=== PATIENT | female | born 1980 | race Caucasian/White ===

== ENCOUNTER 2017-02-12 07:30 | Inpatient (IN) | payer OTHER ==
[2017-02-12] MEDS ORDERED: IBUPROFEN 600 MG TAB PO PRN (11:48)
[2017-02-12] MEDS ORDERED: LR 1,000 ML IV PRN (11:48)
[2017-02-12] MEDS ORDERED: OLIVE OIL 118 ML BTL MISC PRN (11:48)
[2017-02-12] MEDS ORDERED: EPSOM SALT 454 GM TP PRN (11:48)
[2017-02-12] MEDS ORDERED: OXYTOCIN/RINGERS LACTATE 1,000 ML IV PRN (11:48)
[2017-02-12] MEDS ORDERED: TERBUTALINE SULFATE 1 MG/ML VIAL IV PRN (11:48)
[2017-02-12] MEDS ORDERED: OXYTOCIN/LR *STANDARD DOSE PROTOCOL IV SCH (13:00)
[2017-02-12 13:16] LABS: ABSOLUTE IMMATURE GRANULOCYTES 0.12 10^3/uL (0.00-0.10); ADD DIFF? NO; ADD MORPH? NO; ADD SCAN? NO; ATYPICAL LYMPHOCYTE FLAG 0 (0-99); FRAGMENT RBC FLAG 0 (0-99); HEMATOCRIT 33.6 % (38.0-47.0); HEMOGLOBIN 11.7 g/dL (12.6-16.3); LEFT SHIFT FLG 10 (0-99); LIPEMIA HEMOLYSIS FLAG 90 (0-99); MEAN CELL HEMOGLOBIN 31.5 pg (27.9-34.1); MEAN CELL HEMOGLOBIN CONCENTR. 34.8 g/dL (32.4-36.7); MEAN CELL VOLUME 90.6 fL (81.5-99.8); PLATELET CLUMPS FLAG 0 (0-99); PLATELET COUNT 141 10^3/uL (150-400); RED BLOOD CELL COUNT 3.71 10^6/uL (4.18-5.33); RED CELL DISTRIBUTION WIDTH 14.2 % (11.5-15.2)
[2017-02-12] MEDS ORDERED: LIDOCAINE 1% 300 MG/30 ML SDV ONE (15:01)
[2017-02-12] MEDS ORDERED: AMMONIA AROMATIC 1 EACH AMP IH ONE (15:01)
[2017-02-12] MEDS ORDERED: OLIVE OIL 118 ML BTL ONE (15:01)
[2017-02-12] MEDS ORDERED: MISOPROSTOL 200 MCG TAB ONE (15:02)
--- NOTE | 2017-02-12 17:13 | GHP ---
[f rep st] HISTORY AND PHYSICAL DATE OF ADMISSION: 02/12/2017 ADMITTING DIAGNOSES: 1. Intrauterine at 39-6/7 weeks. 2. Elective induction. HISTORY OF PRESENT ILLNESS: Patient is a 36-year-old, 3, para 1-0-1-1 at 39-6/7 weeks, with estimated due date 02/13/2017 by last menstrual period , and confirmed by first-trimester ultrasound at 8 weeks. The patient presents to labor and delivery for an elective induction of labor. She denies any leakage of fluid, vaginal bleeding. Good movement noted. She is having occasional contractions. She was examined about a week ago and noted to be 2 cm dilated, 75%, -2 station. She had her membranes swept and presents to labor and delivery today for an elective induction. The patient does have good care at [facility], and presented in her first trimester at 8 weeks. The is complicated by advanced maternal age. The patient did have genetic testing and all the testing was negative. The patient has a history of severe preeclampsia with G1, as well as retained placenta requiring D &C. Blood pressures in this have been stable. Anatomy scan at 20 weeks was normal but EFW was at 90%ile and upper normal dilated brain ventricles. These were followed with serial ultrasounds and normal. The patient did develop anemia of and is tolerating iron. She had multiple growth ultrasounds, each showing estimated weight at 98th percentile, but most recent at 37 weeks with an estimated weight 4753 g. Patient was offered a , declines at this time and wants to proceed with a vaginal delivery. Patient did receive both flu vaccine and Tdap. GBS culture is negative. PAST OBSTETRIC HISTORY: November 2013 she delivered a viable female at 40 weeks weighing 3262 g, vaginal delivery complicated by severe preeclampsia and complicated by manual extraction of placenta. In January 2016, she had a chemical and did not need a D and C, she was under 5 weeks. PAST GYNECOLOGIC HISTORY: Age of menarche 14 years. Cycles are every 28 days x3 to 4 days. Last menstrual period 05/08/2016. The patient denies a history of abnormal Pap smears or any exposure to sexually transmitted diseases. PAST MEDICAL HISTORY: Peptic ulcer diagnosed in 2016. PAST SURGICAL HISTORY: D and C. MEDICATIONS: vitamins, DHA, vitamin D. ALLERGIES: No known drug allergies. SOCIAL HISTORY: She is . She lives with her and their daughter. She is a teacher. Denies any alcohol or illicit drug use. She is a former smoker, but that was greater than 10 years ago FAMILY HISTORY: Father with coronary artery disease, duodenal cancer. Her sister has gallstones. Paternal grandmother lung cancer. Paternal aunt breast cancer. A history of depression in several family members. REVIEW OF SYSTEMS: Ten point review of systems is negative. Pertinent positives noted in HPI. LABORATORIES: The patient is A positive, antibody negative. RPR nonreactive. Rubella immune. Hepatitis B surface antigen negative. HIV negative. Trio screen was negative in 2013. All genetic testing negative. H and H 10.8 and 31.7. One-hour Glucola 73. Urine culture negative. GBS is negative. PHYSICAL EXAMINATION: VITAL SIGNS: On admission, vital signs are stable. Patient is afebrile. GENERAL: Well-nourished, well-developed female, alert and oriented x3. No apparent distress. CARDIOVASCULAR: Regular rate and rhythm. LUNGS: Clear to auscultation bilaterally. ABDOMEN: Gravid, soft, nontender, nondistended. PELVIC: On exam ,she is 2 cm dilated, 75% effaced, - 2 station. Soft. EXTREMITIES: Normal to inspection without calf tenderness or edema. heart tones: Category 1 tracing. Baseline of 140 beats per minute. Positive accelerations. No decelerations. Moderate variability. On toco, she is mark irregularly. ASSESSMENT: The patient is a 36-year-old, 3, para 1-0-1-1, at 39-6/7 weeks, who presents for an elective induction. PLAN: 1. Admit to labor and delivery. 2. Start Pitocin per protocol. 3. GBS is negative. No antibiotics needed. 4. Patient desires a natural delivery. /[id number]/MODL MTDD
--- NOTE | 2017-02-12 18:31 | OBPROG ---
OBG Labor Progress Note Assessment/Plan: Assessment: 36 y/o @ 38 6/7 wks for elective IOL Plan: Continue expectant management AROM-clear, moderate amt fluid FHTs - Cat I tracing Anticipate 02/12/17 18:28 Subjective: Pt is in chair, ctx's are getting more painful. Objective: 02/12/17 12:50 Patient ABO/Rh A POSITIVE 02/12/17 12:50 Lombardi Current Contraction Pattern: Regular FHR (bpm): 140 FHR Pattern Variability: Moderate FHR Category: 1 Membranes: AROM Amniotic Fluid Color: Clear - Procedures Non-surgical Procedures: Amniotomy Oxytocin Orders Assessment - Pre-Induction/Augmentation Assessment Gestational Age: 39 week(s) and 6 day(s) ICD10 Worksheet Patient Problems: Problems Problem Status Onset Endometritis Acute Preeclampsia Acute
--- NOTE | 2017-02-12 18:55 | OBPROG ---
OBG Labor Progress Note Assessment/Plan: Assessment: 36 y/o @ 38 6/7 wks for elective IOL Plan: Continue expectant management AROM-clear, moderate amt fluid FHTs - Cat I tracing Anticipate 02/12/17 18:28 Objective: 02/12/17 12:50 Patient ABO/Rh A POSITIVE 02/12/17 12:50 - Procedures Non-surgical Procedures: Amniotomy Oxytocin Orders Assessment - Pre-Induction/Augmentation Assessment Indication: Elective IOL Presentation: Vertex Gestational Age: 39 week(s) and 6 day(s) Gestational Age Determined By: Ultrasound (confirmed by first trimester u/s), Last Menstral Period Estimated Weight: 2501-3400g Membrane Status: Intact Current Contraction Pattern: Regular, Irregular ICD10 Worksheet Patient Problems: Problems Problem Status Onset Endometritis Acute Preeclampsia Acute
[2017-02-12] MEDS ORDERED: METHYLERGONOVINE MAL 0.2 MG/ML INJ ONE (23:21)
[2017-02-12] MEDS ORDERED: HYDROCORTISONE 0.5% CREAM TP PRN (23:30)
[2017-02-12] MEDS ORDERED: SIMETHICONE 80 MG TAB CHEW PO PRN (23:30)
--- NOTE | 2017-02-12 23:34 | OBDEL ---
Info Type: Vaginal GBS+: No Indications for Delivery: Elective Vaginal Delivery - Labor and Delivery Onset of Contractions Date: 02/12/17 Onset of Contractions Time: 17:15 Onset of Contractions Type: Induced Rupture of Membranes Date: 02/12/17 Rupture of Membranes Time: 17:52 Rupture of Membranes Type: Artificial Amniotic Fluid Color: Clear Dilation Complete Date: 02/12/17 Dilation Complete Time: 22:45 Placenta Delivery Date: 02/12/17 Placenta Delivery Time: 23:17 Total Hours of Labor: 6 Non-surgical Procedures: Amniotomy Episiotomy: Midline Repair: 3-0, Vicryl Vaginal Sponge Count Correct: Yes Vaginal Needle Count Correct: Yes Vaginal Sweep Performed: Yes EBL: 500cc Delivery Events: Nuchal Cord (loose x 1, slipped over perineum) - Medications Labor Augmentation/Induction Methods Used: Pitocin Labor Augmentation/Induction Indication: Elective Data Lombardi Delivery Date: 02/12/17 Delivery Time: 22:58 BOYD: 02/13/17 Gestational Age: 39 week(s) and 6 day(s) Sex of Infant: Male Score (1 Min): 9 Score (5 Min): 9 ICD10 Worksheet Patient Problems: Problems Problem Status Onset (spontaneous vaginal delivery) Acute Elective induction of labor planned Acute
[2017-02-12] MEDS: IBUPROFEN 600 MG TAB PO PRN (23:42)
[2017-02-13] MEDS: HYDROCODONE/APAP 5/325 TAB PO PRN ×2 (01:52→05:32)
[2017-02-13] MEDS: IBUPROFEN 600 MG TAB PO PRN ×3 (05:32→18:07)
[2017-02-13] MEDS: OXYCODONE/APAP 5/325 TAB PO PRN ×3 (10:11→18:37)
[2017-02-13] MEDS: DOCUSATE SODIUM 100 MG CAP PO PRN (10:12)
[2017-02-13] MEDS: IRON POLYSAC/IRON HEME 28 MG TAB PO SCH ×2 (10:16→20:12)
--- NOTE | 2017-02-13 19:41 | OBPP ---
Progress Note Assessment/Plan: Assessment: well pt consult / to come tomorrow pain fair managed after percocet given voiding without difficulty/ except with mobilty and pain needing assistance to get there scant rubra lochia discussed penitentiary /moderate term/shortterm possibilitys with symphasis separation consulted with dr. blanco on poc pelvic binder Plan:pain medication, pt consult, 02/13/17 19:29 02/13/17 19:53 Subjective: Feeling better after meds changed to percocet. pelvic binder moved into correct place to assist with pain relief. discussed body mechics and ways to assist with decreasing pain. Objective: 02/12/17 12:50 Patient ABO/Rh A POSITIVE 02/12/17 12:50 Temp Pulse Resp BP Pulse Ox 36.8 C 110 H 16 99/56 L 02/13/17 07:30 02/13/17 07:30 02/13/17 07:30 02/13/17 07:30 Uterine Position/Fundal Height: At Umbilicus Uterine Tone: Firm Physical Exam - Physical Exam General Appearance: WD/WN, alert, no apparent distress Abdomen: other (ff@u) Extremities: normal range of motion, Cheo's sign (negative bilaterally) DTR- Lower Extremities: Knee (R): 1+, Knee (L): 1+ (no clonus bilaterally) Skin: normal color Neuro/Psych: no motor/sensory deficits, alert, normal mood/affect, oriented x 3 (mobility pelvic support pt consult)
[2017-02-13] MEDS: oxyCODONE IR 5 MG TAB PO PRN (20:12)
[2017-02-14] MEDS: IBUPROFEN 600 MG TAB PO PRN ×4 (00:06→18:25)
[2017-02-14] MEDS: OXYCODONE/APAP 5/325 TAB PO PRN ×5 (00:06→20:13)
[2017-02-14] MEDS: DOCUSATE SODIUM 100 MG CAP PO PRN ×2 (06:19→21:56)
--- NOTE | 2017-02-14 07:05 | OBPP ---
Progress Note Assessment/Plan: Assessment: pt consult / to come today pain fair managed after percocet given voiding without difficulty mobility slow to the restroom needing assistance with replacement of the binder after up to the restroom through the night able to get medication out to allow for close coverage of meds to assist with the pain Plan:pain medication, pt consult, observation assistance with resources, medication management, for symphasis pubis separation 02/13/17 19:29 02/13/17 19:53 02/14/17 07:01 Subjective: Continue pain management, pelvic stabilization, and management of resources to go home Objective: 02/12/17 12:50 Patient ABO/Rh A POSITIVE 02/12/17 12:50 Temp Pulse Resp BP Pulse Ox 36.2 C 90 18 107/66 93 02/13/17 20:09 02/13/17 20:09 02/13/17 20:09 02/13/17 20:09 02/13/17 20:09
--- NOTE | 2017-02-14 07:59 | OBPP ---
Progress Note Assessment/Plan: Assessment: 1) s/p PPD # 2 - pt is stable 2) Pubic Diastasis Plan: Continue routine pp care Continue pain management, pelvic stabilization, and management of resources to go home PT to see pt this am Plan for d/c home in am 02/1402/14/17 07:55 Subjective: Pt seen and examined. Doing much better. Some cramping, but relief with pain meds. She is concerned about caring for her children at home secondary to pain with pubis diastasis. Pain is better with Percocet and Motrin. Voiding without difficulty. Passing flatus. No BM yet. BF without difficulty. Objective: 02/12/17 12:50 Patient ABO/Rh A POSITIVE 02/12/17 12:50 Temp Pulse Resp BP Pulse Ox 36.2 C 90 18 107/66 93 02/13/17 20:09 02/13/17 20:09 02/13/17 20:09 02/13/17 20:09 02/13/17 20:09 Uterine Position/Fundal Height: Umbilicus -2 Uterine Tone: Firm Physical Exam - Physical Exam General Appearance: WD/WN, alert, no apparent distress Respiratory: lungs clear, normal breath sounds Cardiac/Chest: regular rate, rhythm Abdomen: normal bowel sounds, non-tender, soft, flatus (+) Extremities: non-tender, normal inspection Skin: normal color, warm/dry Neuro/Psych: alert, normal mood/affect, oriented x 3
[2017-02-14] MEDS: oxyCODONE IR 5 MG TAB PO PRN ×2 (08:37→21:59)
[2017-02-14] MEDS: IRON POLYSAC/IRON HEME 28 MG TAB PO SCH ×2 (08:38→21:56)
[2017-02-15] MEDS: IBUPROFEN 600 MG TAB PO PRN ×2 (00:34→06:39)
[2017-02-15] MEDS: OXYCODONE/APAP 5/325 TAB PO PRN ×4 (01:32→13:37)
[2017-02-15] MEDS: DOCUSATE SODIUM 100 MG CAP PO PRN (08:29)
[2017-02-15] MEDS: IRON POLYSAC/IRON HEME 28 MG TAB PO SCH (08:29)
[2017-02-15] MEDS: oxyCODONE IR 5 MG TAB PO PRN (08:47)
[2017-02-15 11:19] VITALS: BP 104/60; PULSE 94; RESP 18; TEMP 97.1; O2SAT 94
[2017-02-15] MEDS ORDERED: POLYETHYLENE GLYCOL 3350 17 GM PKT PO PRN (11:21)
[2017-02-15] MEDS ORDERED: LACTULOSE 20 GM/30 ML UDCUP PO PRN (11:21)
[2017-02-15] MEDS ORDERED: BISACODYL 10 MG SUPP PR PRN (11:21)
--- NOTE | 2017-02-15 11:26 | OBPP ---
Progress Note Assessment/Plan: Assessment: pt consult today pain well managed voiding without difficulty mobility better managed today/ walker to go home si belt has one at home alternating ibuprofen and narcotic q 3 h worried about bm constipation with the bowel protocol ordered before dischagre Plan:discharge to home with instructions fu 1 week 4 weeks and 6 weeks, pericare , , pain management, mobility, ss infection, contraception, verbalized understanding of all of the above 02/13/17 19:29 02/13/17 19:53 02/14/17 07:01 02/15/17 11:23 Subjective: Doing well. PT today. PAin better managed. Discussed pain management at home. going well. Objective: 02/12/17 12:50 Patient ABO/Rh A POSITIVE 02/12/17 12:50 Temp Pulse Resp BP Pulse Ox 36.2 C 94 18 104/60 94 02/15/17 11:18 02/15/17 11:18 02/15/17 11:18 02/15/17 11:18 02/15/17 11:18 Uterine Position/Fundal Height: At Umbilicus Uterine Tone: Firm Physical Exam - Physical Exam General Appearance: WD/WN, alert, no apparent distress Extremities: normal range of motion, Cheo's sign (negative bilateally) DTR- Lower Extremities: Knee (R): 1+, Knee (L): 1+ (no clonus) Back: Normal inspection Skin: normal color, warm/dry Neuro/Psych: no motor/sensory deficits, alert, normal mood/affect, oriented x 3
--- NOTE | 2017-02-15 11:31 | OBGCSDC ---
General Delivery Information - General Info : 3 Para: 2 Delivery Physician/CNM: Soniya العلي Labs: Patient ABO/Rh A POSITIVE 02/12/17 12:50 Hct 33.6 % (38.0-47.0) L 02/12/17 12:50 Vaginal - Diagnosis Labor: Induced Rupture of Membranes Type: Artificial Amniotic Fluid Color: Clear Episiotomy: Midline Repair: 3-0, Vicryl Delivery Events: Nuchal Cord (loose x 1, slipped over perineum) - Operations/Procedures Non-surgical Procedures: Amniotomy L&D Analgesia/Anesthesia Type: Local - Hospital Course Antepartum: No difficulties with the Intrapartum: @ degree laceration repaired without difficulty labor went well delivered vaginally. LGA baby 9-12 : Symphsis pubis separtation, narcotics use. PT consult, Fu 1 weeks 4 weeks and 6 weeks pp. PAin well managed after the first day. VS wnl. well. - Delivery Non-surgical Procedures: Amniotomy L&D Analgesia/Anesthesia Type: Local Data Lombardi Delivery Date: 02/12/17 Delivery Time: 22:58 BOYD: 02/13/17 Gestational Age: 40 week(s) and 2 day(s) Sex of Infant: Male [place] Weight (gm): 4424 g Score (1 Min): 9 Score (5 Min): 9 Discharge Information - Discharge Information Condition: Good
== END 2017-02-15 14:15 | disposition home or self-care (01) | DRG 775 ==
LOC: FLD 11:00 → FOB 02-13 08:44
PROVIDERS: ADMIT Obstetrics & Gynecology; ATTEND Obstetrics & Gynecology
DX: O70.1 Second degree perineal laceration during delivery (principal); O36.63X0 Maternal care for excessive fetal growth, third trimester, not applicable or unspecified; O69.81X0 Labor and delivery complicated by cord around neck, without compression, not applicable or unspecified; O71.6 Obstetric damage to pelvic joints and ligaments; Z3A.39 39 weeks gestation of pregnancy; Z37.0 Single live birth
CPT/HCPCS: 97116-GP; 97161-GP; 97530-GP; J2210; J2590

== ENCOUNTER → 2017-03-24 | Day surgery (SDC) | payer OTHER ==
--- NOTE | 2017-03-20 17:51 | GHP ---
[f rep st] PREOP HISTORY AND PHYSICAL DATE OF ADMISSION: 03/24/2017 SCHEDULED DATE OF SURGERY: Friday March 24, 2017, at 12:00 p.m. SURGERY TO BE PERFORMED: Suction dilation and curettage. PREOPERATIVE DIAGNOSIS: Retained products of conception, 6 weeks status post vaginal delivery. HISTORY OF PRESENT ILLNESS: Evelina is a 37-year-old, 3, para 2-0-1-2, who is currently 5 we eks status post a spontaneous vaginal delivery of a viable male on February 12, 2017. That baby weighed 9 pounds, 12 ounces. She had an uncomplicated course, and had a spontaneous delivery of the placenta at delivery. She presented for her routine exam and still was complaining of light vaginal bleeding, but continues the entire time; and she had a history of needing a postpar ousmane D and C with her last baby and wished to have an ultrasound to check. Ultrasound today confirme d retained products of conception. Her endometrial lining is 1.76 cm thick; and she has a 3 x 1.4 x 1.7 cm heterogeneous complex mass in the upper endometrium, which is likely retained products of co nception. Ovaries are normal. Patient is nontoxic, feels well other than the bleeding. We discuss ed treatment options of medical management versus suction D and C. Patient wishes to have a suction D and C, and that is scheduled for Friday. PAST OBSTETRICAL HISTORY: In November 2013 she had a viable female, had severe preeclampsia diagnosed at term. She did need a manual extraction of the placenta, and had a retained fragment that placent a, needed a D and C, 6 weeks . In January of 2016 she had a spontaneous , and then h er last delivery in January of this year. She has no past medical history. The only surgery she has h ad is a D and C for retained placenta. PAST GYNECOLOGICAL HISTORY: She has a normal menstrual triad, menarche at 14, interval every 28 day s, length 3-4 days. No abnormal Paps. No complications. ALLERGIES: No known drug allergies. MEDICATIONS: Include vitamins. LABS: Her blood type is A positive. SOCIAL HISTORY: She is . She works as a teacher. She lives with her Christian and her 2 children. She denies tobacco, alcohol, and drug use, and she is breast-feeding full-time. FAMILY HISTORY: Noncontributory. OBJECTIVE: VITAL SIGNS: She is afebrile. Blood pressure is 109/72, weight is 143 pounds. GENERAL : She is a well-developed, well-nourished white female, in no acute distress. LUNGS: Clear to aus cultation bilaterally. HEART: Regular rate and rhythm. No murmurs. ABDOMEN: Soft, nontender, no ndistended. Normal bowel sounds. PELVIC EXAM: Well-healed midline episiotomy, normal parous cervi x. Uterus is anteverted, anteflexed, nontender and ultrasound results are as above. ASSESSMENT AND PLAN: 37-year-old, 3, para 2-0-1-2, who is 6 weeks with retained placenta. She will have a suction dilation and curettage. She has consented, she understands the r isks and benefits, including bleeding, infection, damage to internal organs, including the uterus, a nd possible risk of perforation, risk of damage to other organs if perforation were to occur, need f or additional procedures or spontaneous expulsion at a later time. She understood these risks and b enefits and agreed to proceed. /[id number]/MODL
[~2017-03-24] MED LIST: DEXAMETHASONE 4 MG/ML VIAL ONE; DOXYCYCLINE HYCLATE 100 MG CAP/TAB PO ONE; HYDROCODONE/APAP 5/325 TAB PO PRN; KETOROLAC 30 MG/1 ML SDV ONE; LIDOCAINE 2% 5 ML SDV ONE; LR 1,000 ML IV ONE; MEPERIDINE 25 MG/ML SYR IVP PRN; ONDANSETRON 4 MG/2 ML VIAL IVP PRN; ONDANSETRON 4 MG/2 ML VIAL ONE; PROPOFOL/EMULSION 500 MG/50 ML BOTTLE IV ONE; fentaNYL 100 MCG/2 ML INJ IVP PRN; fentaNYL 100 MCG/2 ML INJ ONE
--- NOTE | 2017-03-24 12:08 | PDANEPAE ---
ANE History of Present Illness Retained placenta. ANE Past Medical History Past Medical History: Previous D&C for retained placenta. - Cardiovascular History Hx Hypertension: No Hx Arrhythmias: No Hx Chest Pain: No Hx Coronary Artery / Peripheral Vascular Disease: No Hx CHF / Valvular Disease: No Hx Palpitations: No - Pulmonary History Hx COPD: No Hx Asthma/Reactive Airway Disease: No Hx Recent Upper Respiratory Infection: No Hx Oxygen in Use at Home: No Hx Sleep Apnea: No - Endocrine History Hx Diabetes: No Hypothyroid: No Hyperthyroid: No Obesity: no ANE Review of Systems Review of systems is: negative ANE Patient History - Allergies Allergies/Adverse Reactions: No Known Allergies Allergy (Unverified 02/12/17 13:47) - Home Medications Home Medications: 1 tab PO DAILY 12/01/13 [Last Taken 02/12/17] - Anes Hx Anes Hx: no prior problems - Smoking Hx Smoking Status: Never smoked ANE Physical Exam - Airway Neck exam: FROM Mallampati Score: Class 1 Mouth exam: normal dental/mouth exam - Pulmonary Pulmonary: no respiratory distress - Cardiovascular Cardiovascular: regular rate and rhythym - ASA Status ASA Status: I ANE Anesthesia Plan Anesthesia Plan: GA with mask
--- NOTE | 2017-03-24 13:59 | GOP ---
[f rep st] OPERATIVE REPORT DATE OF OPERATION: 03/24/2017 SURGEON: Meredith Wang MD ANESTHESIA: MAC sedation. ANESTHESIOLOGIST: Michael Darden MD. PREOPERATIVE DIAGNOSIS: Retained placenta, 6 weeks status post a spontaneous vaginal delivery. POSTOPERATIVE DIAGNOSIS: Retained placenta, 6 weeks status post a spontaneous vaginal delivery. PROCEDURE PERFORMED: Suction dilation and curettage. FINDINGS: SPECIMENS: Products of conception. ESTIMATED BLOOD LOSS: Less than 50 cc. INDICATIONS: The patient is a 37-year-old 3, para 2-0-1-2, who is 6 weeks status post a spo ntaneous vaginal delivery of a viable male on February 12, 2017. That baby weighed 9 pounds 12 ounces, and she had an uncomplicated course. At her visit, she reported persistent bl eeding, and she had an ultrasound that revealed retained products of conception. Endometrial lining was 1.76 cm thick, and she had a 3 x 1.4 x 1.7 cm heterogeneous complex mass in the upper endometri um, which was likely retained products of conception. The patient was given treatment options of me dical management versus surgical management. She opted to have surgical management with a suction d ilation and curettage. The patient understood the risks and benefits, with the risks including blee ding, infection, damage to the uterus, including possible risk of perforation, damage to other organ s if perforation were to occur, need for additional procedures, spontaneous expulsion of tissue at a later time, and compromise of future fertility. She understood these risks and benefits and agreed to proceed. DESCRIPTION OF PROCEDURE: The patient was taken to the operating room, where she was placed under g eneral anesthesia without difficulty. She was prepped and draped in the dorsal lithotomy position. After a WHO time-out was performed, an open-sided speculum was placed in the vagina, and a Zaldivar t enaculum was used to grasp the anterior lip of the cervix. The uterus sounded to 14 cm. The cervix was progressively dilated with Billings dilators to a #11. The #11 curved suction curette was then ge ntly advanced from the cervix to the fundus, and with several passes of suction, there was tissue ob tained. Sharp curettage was then performed in a clockwise fashion, and there were obvious placental fragments removed with the sharp curettage. That was performed several times. Final pass of the s uction revealed no bleeding and minimal tissue. A transvaginal ultrasound was performed at the [facility], and there was a thin endometrial stripe with no obvious products of conception seen. Tenaculum was removed. There was no bleeding at the cervix. Speculum was removed. The patient tolerated th e procedure well. Sponge, lap, needle, and instrument counts were correct x3. The patient went to the recovery room in good condition. IV FLUIDS: 500 cc. URINE OUTPUT: Not measured. /[id number]/MODL
--- NOTE | 2017-03-24 14:07 | POSTANESTH ---
Post Anesthetic Evaluation Cardiovascular Status: Normal, Stable Respiratory Status: Normal, Stable Level of Consciousness/Mental Status: Can Participate in Eval Pain Control: Inadeq, Add Tx Required Nausea/Vomiting Control: Adequate, Prn Tx Ordered Complications Possibly Related to Anesthesia: None Noted (Comfortable after fentanyl given in PACU.)
== END | disposition home or self-care (01) ==
LOC: FOBOP 10:02
PROVIDERS: ATTEND Obstetrics & Gynecology
PROC: 10D17ZZ Extraction of Products of Conception, Retained, Via Natural or Artificial Opening (ICD-10-PCS; principal; 2017-03-24)
DX: O72.2 Delayed and secondary postpartum hemorrhage (principal)
CPT/HCPCS: J1100; J1885; J2405; J2704; J3010